=== PATIENT | male | born 1975 | race Caucasian/White ===

== ENCOUNTER 2024-05-01 16:18 | Emergency (ER) | payer OTHER, SELFPAY ==
[2024-05-01 16:20] VITALS: BP 169/97; PULSE 90; RESP 18; TEMP 36.1; O2SAT 95; BMI 35.2
--- NOTE | 2024-05-01 16:38 | ED.GENADULT ---
HPI - General Adult General Time Seen by Provider: 16:38 Date Seen: 05/01/24 Chief complaint: Flank Pain Stated complaint: Severe kidney pain/history of stones Time Seen by Provider: 05/01/24 16:38 Source: patient and RN notes reviewed Mode of arrival: ambulatory Limitations: no limitations History of Present Illness HPI narrative: Dany is a very pleasant 48-year-old male with longstanding history of kidney stones, lithotripsy times for who comes to the emergency room with right flank pain. Patient notes a 20 minute episode of right flank pain but this morning at approximately 0615. It dissipated and he was hopeful that this meant that a stone had passed. However, at approximately 1330 he had increasing right flank pain with occasional radiation into his right groin. He has not been nauseated x-ray. He does not have any urgency or dysuria. He has not had fever or chills. He notes movements does not improve or increases pain. He has not taken anything for pain at this time. Related Data Home Medications ?Medication ?Instructions ?Recorded ?Confirmed atorvastatin 20 mg tablet 20 mg PO DAILY 05/01/24 05/01/24 ezetimibe 10 mg tablet 10 mg PO DAILY 05/01/24 05/01/24 Previous Rx's ?Medication ?Instructions ?Recorded tamsulosin 0.4 mg capsule (Flomax) 0.4 mg PO QHS #7 caps 05/01/24 Allergies Allergy/AdvReac Type Severity Reaction Status Date / Time No Known Drug Allergies Allergy Verified 05/01/24 16:24 Review of Systems Status of ROS: Reports: 10 or more systems reviewed and unremarkable except as noted in History and below PFSH PFS Social History Smoking Status: Never smoker Do you use any of these nicotine containing products: None Second hand tobacco smoke exposure: No How often do you have a drink containing alcohol: monthly or less How many standard drinks containing alcohol do you have on a typical day: 1 or 2 How often do you have six or more drinks on one occasion: Never AUDIT-C Alcohol total score: 1 Non-prescribed substance use: denies use Exam Narrative: Exam Narrative: Alert and oriented. Mild distress. EOM is full. Face symmetrical. Speech mentation normal. Heart with a regular rhythm. Lungs are clear bilaterally. Abdomen with some slight tenderness in the right lateral area. No CVA tenderness to percussion. Lower extremities without edema. Const: Vital Signs, click to edit/add: Vital Signs - 24 hr 05/01/24 16:20 05/01/24 18:55 Temperature 97.0 F L Pulse Rate [Right Pulse Oximeter] 90 80 Respiratory Rate 18 16 Blood Pressure [Ri ght Upper Arm] 169/97 H 146/89 H Pulse Oximetry 95 99 Oxygen Delivery Me thod Room Air Room Air Documenting provider has reviewed patient's vital signs: yes Course Course ED Course: Differential diagnosis includes but is not limited to ureteral colic/nephrolithiasis, biliary colic, colitis, intestinal colic. At this time most likely diagnosis is a ureteral stone given this gentleman's history. Will place IV give normal saline 500 mL, Toradol 15 mg IV, Zofran 4 mg IV. Will obtain noncontrast abdomen and pelvic CT. Labs to include CBC, basic panel, urinalysis. Vital Signs Vital signs: Initial Vital Signs Temperature 97.0 F L 05/01/24 16:20 Temperature Source Temporal Artery Scan 05/01/24 16:20 Pulse Rate 90 05/01/24 16:20 Respiratory Rate 18 05/01/24 16:20 Blood Pressure 169/97 H 05/01/24 16:20 Blood Pressure Mean 121 H 05/01/24 16:20 Blood Pressure Position Sitting 05/01/24 16:20 Pulse Oximetry 95 05/01/24 16:20 Oxygen Delivery Method Room Air 05/01/24 16:20 Vital Signs Temperature 97.0 F L 05/01/24 16:20 Pulse Rate 90 05/01/24 16:20 Respiratory Rate 18 05/01/24 16:20 Blood Pressure 169/97 H 05/01/24 16:20 Pulse Oximetry 95 05/01/24 16:20 Oxygen Delivery Method Room Air 05/01/24 16:20 Temperature 97.0 F L 05/01/24 16:20 Pulse Rate 80 05/01/24 18:55 Respiratory Rate 16 05/01/24 18:55 Blood Pressure 146/89 H 05/01/24 18:55 Pulse Oximetry 99 05/01/24 18:55 Oxygen Delivery Method Room Air 05/01/24 18:55 Medications Administered Medications: Discontinued Medications Generic Name Dose Route Start Last Admin Trade Name Freq PRN Reason Stop Dose Admin Sodium Chloride 500 mls @ 500 mls/hr 05/01/24 16:43 05/01/24 17:57 0.9 % Sodium Chloride 500 Ml IV 05/01/24 17:42 Infused .Q1H ONE Infusion Ketorolac Tromethamine 15 mg 05/01/24 16:43 05/01/24 17:56 Ketorolac 15 Mg/Ml Inj IVP 05/01/24 16:44 15 mg ONCE ONE Administration Ondansetron HCl 4 mg 05/01/24 16:43 05/01/24 17:57 Ondansetron 2 Mg/Ml Inj IVP 05/01/24 16:44 4 mg ONCE ONE Administration Medical Decision Making MDM Narrative Medical decision making narrative: 1. Ureteral colic/nephrolithiasis-patient has a 5 mm stone noted in the right proximal ureter. He has had lithotripsy 4 times in the past. Recently he has been able to pass his stones. He has had good relief with Toradol 15 mg IV and Zofran 4 mg IV. He also received 500 mL of normal saline. Patient will be discharged home. Recommend continued straining of the urine. For pain he may use Toradol 10 mg p.o. t.i.d. p.r.n.. For continued pain I have given him a supply of Gilliam 5/325, 1-2 tablets q.6 hours p.r.n.. Ten tablets were issued via [email or web address]. Flomax 0.4 mg p.o. given in the ED and subsequent prescription for 7 days with 1 refill sent to pharmacy. 2. Abnormal urinalysis-patient has no dysuria but did have 5-10 wbc's. No evidence of leukocyte esterase or nitrates, but given presence of stone will treat for UTI while awaiting the urine culture. Keflex 500 mg p.o. b.i.d. x7 days via [email or web address]. 3. Splenic cyst-large up to 9 mm. I did speak to patient about this and see states he knows about this and had a full workup with a physician in [place] years ago. 4. Disposition-patient should follow up with a clinic if he does not passed the stone within the next 72 hours. Recommend returning to the ER or seeking medical attention if he starts experiencing fever, vomiting, chills, body aches or is starting to feel ill. Lab Data Lab results reviewed: Yes I reviewed the patient's lab results Labs: Lab Results 05/01/24 05/01/24 Range/Units 16:30 17:00 WBC 7.79 (4.50-11.00) K/uL RBC 5.26 (4.30-5.90) m/uL Hgb 15.8 (13.5-17.5) gm/dL Hct 47.6 (37.0-53.0) % MCV 91 (80-100) fL MCH 30 (26-34) pg MCHC 33 (32-36) gm/dL RDW Coeff of David 12.6 (11.5-15.5) % Plt Count 210 (140-440) K/uL Neut % (Auto) 63.8 (42.0-72.0) % Lymph % (Auto) 25.3 (20-44) % Robertson % (Auto) 8.6 (0.0-11.0) % Eos % (Auto) 1.7 (0.0-7.0) % Baso % (Auto) 0.5 (0.0-3.0) % Neut # (Auto) 4.97 (1.7-7.0) K/uL Lymph # (Auto) 1.97 (0.90-2.90) K/uL Robertson # (Auto) 0.70 (0.00-0.90) K/UL Eos # (Auto) 0.13 (0.00-0.50) K/uL Baso # (Auto) 0.04 (0.00-0.30) K/uL Abs Immat Gran (auto) 0.01 (0.00-0.30) K/uL Imm/Tot Granulo (auto) 0.1 % Sodium 136 (135-149) mmol/L Potassium 4.0 (3.6-5.1) mmol/L Chloride 105 (96-114) mmol/L Carbon Dioxide 25 (20-32) mmol/L Anion Gap 6 L (7-15) mEq/L BUN 14 (5-24) mg/dL Creatinine 0.9 (0.5-1.5) mg/dL Estimated Creat Clear 103.64 Estimated GFR 105 ml/min Glucose 105 (60-115) mg/dL Calcium 9.2 (8.4-10.6) mg/dL Urine Color Yellow (Yellow) Urine Appearance Clear (Clear) Urine pH 6.0 (5.0-8.5) Ur Specific [place] >= 1.030 (1.000-1.030) Urine Protein Negative (Negative) Urine Glucose (UA) Negative (Negative) Urine Ketones Negative (Negative) Urine Blood 2+ A (Negative) Urine Nitrite Negative (Negative) Urine Bilirubin Negative (Negative) Urine Urobilinogen 0.2 (0.2-1.0) Ur Leukocyte Esterase Negative (Negative) Urine RBC 0-2 (0-2) Urine WBC 5-10 A (0-5) Ur Squamous Epith Cells Few (None-Few) Urine Bacteria None (None) Imaging Data CT scan - abdomen: Attestation: I have reviewed the pertinent imaging results. My impression: Both briefly 4-6 mm stone noted in the right ureter. Smaller stones noted in the right kidney as well. Large mass noted in the spleen as well. Radiologist's impression: Lower chest: No acute abnormality appreciated. Hepatobiliary: No significant parenchymal abnormality is appreciated. Spleen: Partially calcified and septated cyst in the spleen measures up to 9 centimeters. Pancreas: No acute abnormality appreciated. Adrenal glands: No acute abnormality appreciated. Kidneys: Bilateral nonobstructing renal stones. Mild right hydronephrosis and hydroureter with a proximal ureteral stone measuring 5 millimeters. Bowel: No obstruction. No focal perienteric or pericolonic stranding is appreciated. The appendix is visualized and appears unremarkable. Vascular: Poorly evaluated on this noncontrast examination. Calcified atherosclerosis. Lymph nodes: No gross lymphadenopathy. Peritoneum: No free air. No free fluid. : No acute abnormality appreciated. Soft tissues: No acute abnormality appreciated. Fat containing umbilical hernia. Bones: No acute fracture. No lytic or blastic lesion. Degenerative changes of the spine and pelvis. Impression: 1. There is a 5 millimeter obstructing proximal right ureteral stone with mild hydronephrosis. 2. Additional bilateral nonobstructing renal stones present. 3. Large partially calcified cyst in the spleen measuring up to 9 centimeters. Correlation with prior imaging, if available, is recommended. If none is available, nonemergent 6-[address] or MRI follow-up may be considered. Discharge Plan Discharge Clinical Impression: Ureter colic, Nephrolithiasis Patient Disposition: Home, Self-Care Condition: Improved Additional Instructions: For pain: 1. Toradol is much like ibuprofen and may be used 1 tablet every 8 hours for pain. This is the medication which was given to you via IV while in the emergency room. 2. Gilliam is a combination medication of hydrocodone and Tylenol that is a narcotic. This may make you sleepy, cause constipation or nausea. You may use this medication for pain not relieved by Toradol. Suggest use of a stool softener if using Gilliam. Do not drive or use alcohol as this medication will cause sedation. 3. Keflex is an antibiotic that we will use as a treatment for possibility of UTI. Your urine will be cultured and you will be called if we need to change her antibiotic. The 1st 3 medications will be given through our vending machine in the lobby. 4. Flomax is a smooth muscle relaxer. We are hoping that by relaxing the ureter you may have an increased chance of passing this stone. Your 1st dose will be giving to you tonight and the remainder of the medication will be sent to your pharmacy. Stay well hydrated. Seek medical attention for vomiting, fever, body aches, worsening symptoms. Strain your urine. If you do not see a stone in the next 72 hours would recommend follow-up with 1 of your local clinics to be friend helped with a urological consultation. Return to the emergency room as needed and as we discussed. Prescriptions: New tamsulosin [Flomax] 0.4 mg capsule 0.4 mg PO QHS Qty: 7 2RF No Action atorvastatin 20 mg tablet 20 mg PO DAILY ezetimibe 10 mg tablet 10 mg PO DAILY Follow Up/Referrals: Troy Oliva MD [Primary Care Provider] - Stand Alone Forms: [employer] Info Instructions
[2024-05-01 16:59] LABS: Appearance Urine Clear (Clear); Bilirubin Urine Negative (Negative); Blood Urine 2+ (Negative); Color Urine Yellow (Yellow); Glucose Urine Negative (Negative); Ketones Urine Negative (Negative); Leukocyte Esterase Urine Negative (Negative); Nitrite Urine Negative (Negative); Protein Urine Negative (Negative); Specific Gravity Urine >= 1.030 (1.000-1.030); Urobilinogen Urine 0.2 (0.2-1.0)
[2024-05-01 17:11] LABS: Basophils Absolute Auto 0.04 K/uL (0.00-0.30); Basophils Percent Auto 0.5 % (0.0-3.0); Eosinophils Absolute Auto 0.13 K/uL (0.00-0.50); Eosinophils Percent Auto 1.7 % (0.0-7.0); Hematocrit 47.6 % (37.0-53.0); Hemoglobin* 15.8 gm/dL (13.5-17.5); Immature Granulocytes Abs Auto 0.01 K/uL (0.00-0.30); Immature Granulocytes Pct Auto 0.1 %; Lymphocytes Absolute Auto 1.97 K/uL (0.90-2.90); Lymphocytes Percent Auto 25.3 % (20-44); Mean Corpuscular HGB Conc 33 gm/dL (32-36); Mean Corpuscular Hemoglobin 30 pg (26-34); Mean Corpuscular Volume 91 fL (80-100); Monocytes Percent Auto 8.6 % (0.0-11.0); Neutrophils Absolute Auto 4.97 K/uL (1.7-7.0); Neutrophils Percent Auto 63.8 % (42.0-72.0); Platelet Count* 210 K/uL (140-440); RDW Coefficient of Variation % 12.6 % (11.5-15.5); Red Blood Count 5.26 m/uL (4.30-5.90); White Blood Count* 7.79 K/uL (4.50-11.00)
[2024-05-01 17:15] LABS: Slide Review Reflex No
[2024-05-01 17:29] LABS: RBC Urine 0-2 (0-2); Squamous Epithelial Cell Urine Few (None-Few)
--- NOTE | 2024-05-01 17:40 | CRLHL7_ITS ---
For Patients: As a result of the Century Cures Act, medical imaging exams and procedure reports are released immediately into your electronic medical record. You may view this report before your referring provider. If you have questions, please contact your health care provider. Indication: Right abdominal pain, history of kidney stone Technique: Noncontrast CT through the abdomen and pelvis with multiplanar reformats. Comparison: None Findings: Lower chest: No acute abnormality appreciated. Hepatobiliary: No significant parenchymal abnormality is appreciated. Spleen: Partially calcified and septated cyst in the spleen measures up to 9 centimeters. Pancreas: No acute abnormality appreciated. Adrenal glands: No acute abnormality appreciated. Kidneys: Bilateral nonobstructing renal stones. Mild right hydronephrosis and hydroureter with a proximal ureteral stone measuring 5 millimeters. Bowel: No obstruction. No focal perienteric or pericolonic stranding is appreciated. The appendix is visualized and appears unremarkable. Vascular: Poorly evaluated on this noncontrast examination. Calcified atherosclerosis. Lymph nodes: No gross lymphadenopathy. Peritoneum: No free air. No free fluid. : No acute abnormality appreciated. Soft tissues: No acute abnormality appreciated. Fat containing umbilical hernia. Bones: No acute fracture. No lytic or blastic lesion. Degenerative changes of the spine and pelvis. Impression: 1. There is a 5 millimeter obstructing proximal right ureteral stone with mild hydronephrosis. 2. Additional bilateral nonobstructing renal stones present. 3. Large partially calcified cyst in the spleen measuring up to 9 centimeters. Correlation with prior imaging, if available, is recommended. If none is available, nonemergent 6-[address] or MRI follow-up may be considered. Please note that all CT scans at this facility use dose modulation, iterative reconstruction, and/or weight-based dosing when appropriate to reduce radiation dose to as low as reasonably achievable. Dictated by Jarrell Rodriguez MD @ 05/01/2024 7:17:40 PM (Electronically Signed)
[2024-05-01 17:43] LABS: Chloride* 105 mmol/L (96-114); Sodium* 136 mmol/L (135-149)
[2024-05-01 17:46] LABS: Anion Gap 6 mEq/L (7-15); Blood Urea Nitrogen* 14 mg/dL (5-24); Carbon Dioxide* 25 mmol/L (20-32); Creatinine* 0.9 mg/dL (0.5-1.5); Est. Creatinine Clearance* 103.64; Estimated Glomerular Filt Rate 105 ml/min; Glucose* 105 mg/dL (60-115)
[2024-05-01 17:47] LABS: Calcium* 9.2 mg/dL (8.4-10.6)
[2024-05-01] MEDS: KETOROLAC 15 MG/ML inj IVP (17:56)
[2024-05-01] MEDS: 0.9 % SODIUM CHLORIDE 500 ML 500 ML IV (17:57)
[2024-05-01] MEDS: ONDANSETRON 2 MG/ML inj 4 MG IVP (17:57)
[2024-05-01 18:55] VITALS: BP 146/89; PULSE 80; RESP 16; O2SAT 99
[2024-05-01] MEDS: TAMSULOSIN HCL 0.4 MG CAPSULE PO (19:58)
== END 2024-05-01 19:58 | disposition home or self-care (01) ==
PROVIDERS: Emergency Provider Family Medicine; PCP Family Medicine
DX: N20.2 Calculus of kidney with calculus of ureter (principal)
CPT/HCPCS: 36415; 74176; 80048; 81001; 85025; 87086; 96374; 96375; 99284; A9270; J1885; J2405; J7030